=== PATIENT | male | born 1975 | race Hispanic/Latino ===

== ENCOUNTER 2018-09-25 07:25 | Outpatient (CLI) | payer OTHER ==
--- NOTE | 2018-09-25 08:33 | ULT ---
COMPLETE ABDOMEN ULTRASOUND: Date: 09/25/18 INDICATION: Abdominal pain. FINDINGS: Liver measures 15.9 cm. The spleen measures 10.0 cm. The right kidney measures 11.2 cm in length. The left kidney measures 10.9 cm in length. Visualized pancreas is unremarkable; majority obscured. Common bile duct measures 2.8 mm. No definite intrahepatic abnormality is grossly evident. Gallbladder not visualized and presumed to be surgically absent. Visualized aspects of the pancreas unremarkable. Visualized aspects of the abdominal aorta and IVC appear within normal limits. Appropriate hepatopeta l flow is seen within the main portal vein. IMPRESSION: 1. Nonvisualization of the gallbladder, presumed to be surgically absent. 2. No definite acute sonographic abnormality is seen within the abdomen. POS: JIM
== END 2018-09-25 07:26 | disposition home or self-care (01) ==
LOC: BICULT 07:25
PROVIDERS: ATTEND Family Medicine
DX: R93.89 Abnormal findings on diagnostic imaging of other specified body structures (principal)
CPT/HCPCS: 76700